=== PATIENT | female | born 2000 | race Caucasian/White ===

== ENCOUNTER 2023-02-21 15:35 | Outpatient (CLI) | payer BC, SELFPAY ==
[2023-02-21 17:54] LABS: Chlamydia DNA Amplified* NOT DETECTED (No Detected); GC DNA Amplified* NOT DETECTED (No Detected)
== END 2023-02-21 15:36 | disposition home or self-care (01) ==
PROVIDERS: PCP Family Medicine; Visit Provider Registered Nurse
DX: N89.8 Other specified noninflammatory disorders of vagina (principal); Z11.3 Encounter for screening for infections with a predominantly sexual mode of transmission
CPT/HCPCS: 86592; 86703; 86803; 87086; 87340; 87491; 87591

== ENCOUNTER 2023-04-18 13:08 | Outpatient (CLI) | payer BC, SELFPAY ==
[2023-04-18 17:24] LABS: Chlamydia DNA Amplified* NOT DETECTED (No Detected); GC DNA Amplified* NOT DETECTED (No Detected)
[2023-04-22 10:40] LABS: HSV 1 Subtype by PCR Not Detected; HSV 2 Subtype by PCR Not Detected; Herpes Simplex Subtype Source Not Provided
== END 2023-04-18 13:09 | disposition home or self-care (01) ==
PROVIDERS: PCP Family Medicine; Visit Provider Registered Nurse
DX: N94.9 Unspecified condition associated with female genital organs and menstrual cycle (principal)
CPT/HCPCS: 87086; 87491; 87529; 87591

== ENCOUNTER 2023-07-25 07:05 | Outpatient (CLI) | payer BC, SELFPAY ==
--- OUTSIDE RECORDS SUMMARY | 2023-07-25 07:07 | XMS_ITS | Clinical Summary ---
Author Name Unknown Organization [facility] Address [place], [place] [address] Care Team Providers Care Synchronous Motor Assembler Name Role Phone Pcp, No Primary Care Provider Unavailabl e Allergies No known active allergies Medications Medication Sig Dispensed Refills Start Date End Date Status bupropion HCl (WELLBUTRIN ORAL) Take 150 mg by mouth. 0 Active escitalopram oxalate (LEXAPRO) 10 mg tablet Take 10 mg by mouth once daily. 0 Active clonazePAM (KLONOPIN) 0.5 mg tablet Take 0.5 mg by mouth three times daily. 0 Active ondansetron (ZOFRAN ODT) 4 mg disintegrating tabletIndications:COVID -19 Place 1 Tablet (4 mg) on the tongue every 8 hours if needed for Nausea/Vomiting . 12 Tablet 0 07/27/2022 Active rx ondansetron (ZOFRAN ODT) 4 mg orally disintegrating tablet (ED DC MED)Indications:Nausea and vomiting, unspecified vomiting type Place 1 Tablet (4 mg) on the tongue every 8 hours if needed (nausea). 4 Tablet 0 07/27/2022 Active Active Problems Problem Noted Date Diagnosed Date Kidney stones 05/02/2017 Encounter for initial prescr iption of injectable contraceptive 02/09/2017 Menorrhagia with irregular cycle 08/02/2016 Cyst of right ovary 04/28/2016 Social anxiety disorder 01/24/2016 Allergic rhinitis 03/13/2013 Resolved Problems Problem Noted Date Diagnosed Date Resolved Date Constipation 09/23/2013 10/05/2014 Other atopic dermatitis and related conditions 02/12/2007 01/24/2016 Immunizations Name Administration Dates Next Due AMB Influenza, IIV3 (Age >=3 years)(Flu Clinic Only) 05/02/2008 DTaP 01/16/2008,05/18/2004 [id number] (Pediarix) 06/30/2003,05/01/2003,0 02/24/2003 HIB PRP-OMP (PedvaxHIB) 05/18/2004,05/01/2003, HPV 9 (Gardasil 9) 01/24/2016,08/24/2015, 015 Hepatitis A (Peds) 08/24/2015,02/02/2015 Inactivated Polio Vaccine 01/16/2008 Influenza, IIV3 (Age >=3 years) 05/06/2013,03/02,04/30/2007 Influenza, IIV4 02/09/2017,03/10/2016,04/21/2014 MMR 01/16/2008,01/20/2004 Meningococcal Vaccine (Menveo) 02/02/2015 Pneumococcal conj 7-Valent (Prevnar 7) 4,05/01/2003,02/24/2003 Tdap 02/02/2015 Varicella Vaccine 01/16/2008,01/20/2004 Family History Medical History Relation Name Comments Good Health Brother 1 Good Health Brother 2 Other Maternal Aunt Cerebtal Hemor rhage Cancer Maternal Grandfather mouth Multiple sclerosis Maternal Grandmother Asthma Mother Good Health Sister Relation Name Status Comments Brother 1 Alive Brother 2 Alive Father Alive Maternal Aunt Maternal Grandfather Alive Maternal Grandmother Mother Alive Paternal Grandfather Alive Paternal Grandmother Alive Sister Alive Social History Tobacco Use Types Packs/Day Years Used Date Smoking Tobacco: Passive Smo ke Exposure - Never Smoker Smokeless Tobacco: Never Tobacco Cessation:Counseling Given: Yes Comments:mom smokes outside Alcohol Use Standard Drinks/Week Comments Yes 0 (1 standard drink = 0.6 oz pur e alcohol) occasionally Sex and Gender Information Value Date Recorded Sex Assigned at Not on file Gender Identity Not on file Sexual Orientation Not on file Obstetrics History Para Term AB IAB SAB Ectopic Multiple Livin g Live Births 0 0 0 0 0 0 0 0 0 0 Last Filed Vital Signs Vital Sign Reading Time Taken Comments Blood Pressure 113/79 07/27/2022 11:10 PM MILITARY EXCHANGE WIRELESS MANAGER Pulse 89 07/27/2022 11:10 PM MILITARY EXCHANGE WIRELESS MANAGER Temperature 37.9 ??C (100.3 ??F) 07/27/2022 11:10 PM MILITARY EXCHANGE WIRELESS MANAGER Respiratory Rate 20 07/27/2022 11:10 PM MILITARY EXCHANGE WIRELESS MANAGER Oxygen Saturation 100% 07/27/2022 11:10 PM MILITARY EXCHANGE WIRELESS MANAGER Inhaled Oxygen Concentration - - Weight 53 kg (116 lb 13.5 oz) 07/27/2022 9:53 PM MILITARY EXCHANGE WIRELESS MANAGER Height 162.6 cm (5' 4) 07/27/2022 9:53 PM MILITARY EXCHANGE WIRELESS MANAGER Body Mass Index 20.06 07/27/2022 9:53 PM MILITARY EXCHANGE WIRELESS MANAGER Plan of Treatment Health Maintenance Due Date Last Done Comments Well Child Check for age 3-20 01/23/2017 01/24/2016, 02/02/2015, 01/21/2013, Additional history exists HIV for age 15-65 2017 Depression screening for age 12+ 02/09/2018 02/09/2017, 04/28/2016, 01/24/2016, Additional history exists BMI (ht and wt on same day) for age 18+ 2020 Hepatitis C screening for age 18-79 2020 COVID-19 vaccine series ( season) 2023 10/28/2020, 10/04/2020 Influenza for age 9-49 02/02/2023 7, 03/10/2016, 04/21/2014, Additional history exists Tetanus booster 02/02/2025 02/02/2015 Pneumococcal series for age 6-64 Aged Out 06/30/2003, 05/01/2003, 02/24/2003 No longer eligible based on patient's age to complete this topic Meningococcal series for age 11-21 Aged Out 02/02/2015 No longer eligible based on patient's age to complete this topic Tdap Completed 02/02/2015 HPV series for age 9-26 Completed 01/24/20 16, 08/24/2015, 02/02/2015 Advance Directives Latest Code Status on File Code Status Date Activated Date Inactivated Comments Full Code 05/09/2013 9:17 AM 05/09/2013 1:48 PM Code Status History Code Status Date Activated Date Inactivated Comments Full Code 05/09/2013 7:15 AM 05/09/2013 9:17 AM Care Teams Synchronous Motor Assembler Relationship Specialty Start Date End Date Pcp, No . PCP - General 06/03/20
== END 2023-07-25 07:06 | disposition home or self-care (01) ==
LOC: NFLDREF 07:05
PROVIDERS: PCP Family Medicine; Visit Provider Family Medicine
DX: R30.0 Dysuria (principal)
CPT/HCPCS: 87086

== ENCOUNTER 2023-08-20 13:25 | Outpatient (CLI) | payer BC, SELFPAY ==
[2023-08-20 14:27] LABS: Clue Cells <20% Clue Cells Seen (None Seen); Trichomonas No Trichomonas Seen (None Seen); Yeast No Yeast Seen (None Seen)
== END 2023-08-20 13:26 | disposition home or self-care (01) ==
LOC: FBOREF 13:26
PROVIDERS: PCP Family Medicine; Visit Provider Family Medicine
DX: N89.8 Other specified noninflammatory disorders of vagina (principal)
CPT/HCPCS: 81001; 87086; 87210

== ENCOUNTER 2023-09-10 14:43 | Emergency (ER) | payer OTHER, SELFPAY ==
--- OUTSIDE RECORDS SUMMARY | 2023-09-10 14:46 | XMS_ITS | Clinical Summary ---
Author Name Unknown Organization [facility] Address [place], [place] [address] Care Team Providers Care Director Product Development Name Role Phone Pcp, No Primary Care Provider Unavailabl e Allergies No known active allergies Medications Medication Sig Dispensed Refills Start Date End Date Status bupropion HCl (WELLBUTRIN ORAL) Take 150 mg by mouth. Active escitalopram oxalate (LEXAPRO) 10 mg tablet Take 10 mg by mouth once daily. Active clonazePAM (KLONOPIN) 0.5 mg tablet Take 0.5 mg by mouth three times daily. Active ondansetron (ZOFRAN ODT) 4 mg disintegrating tabletIndications:COVID -19 Place 1 Tablet (4 mg) on the tongue every 8 hours if needed for Nausea/Vomiting . 12 Tablet 07/27/2022 Active rx ondansetron (ZOFRAN ODT) 4 mg orally disintegrating tablet (ED DC MED)Indications:Nausea and vomiting, unspecified vomiting type Place 1 Tablet (4 mg) on the tongue every 8 hours if needed (nausea). 4 Tablet 07/27/2022 Active Active Problems Problem Noted Date [...] >=3 years)(Flu Clinic Only) 05/02/2008 DTaP 01/16/2008,05/18/2004 [id number] (Pediarix) 06/30/2003,05/01/2003,0 02/24/2003 HIB PRP-OMP (PedvaxHIB) 05/18/2004,05/01/2003, [...] Comments Blood Pressure 113/79 07/27/2022 11:10 PM FLIGHT INSTRUCTOR Pulse 89 07/27/2022 11:10 PM FLIGHT INSTRUCTOR Temperature 37.9 ??C (100.3 ??F) 07/27/2022 11:10 PM FLIGHT INSTRUCTOR Respiratory Rate 20 07/27/2022 11:10 PM FLIGHT INSTRUCTOR Oxygen Saturation 100% 07/27/2022 11:10 PM FLIGHT INSTRUCTOR Inhaled Oxygen Concentration - - Weight 53 kg (116 lb 13.5 oz) 07/27/2022 9:53 PM FLIGHT INSTRUCTOR Height 162.6 cm (5' 4) 07/27/2022 9:53 PM FLIGHT INSTRUCTOR Body Mass Index 20.06 07/27/2022 9:53 PM FLIGHT INSTRUCTOR Plan of Treatment Health Maintenance Due Date Last Done Comments Well Child Check for age 3-20 01/23/2017 01/24/2016, 02/02/2015, 01/21/2013, Additional history exists HIV for age 15-65 2017 Depression screening for age 12+ 02/09/2018 02/09/2017, 04/28/2016, 01/24/2016, Additional history exists BMI (ht and wt on same day) for age 18+ 2020 Hepatitis C screening for age 18-79 2020 COVID-19 vaccine series (2022- season) 2023 10/28/2020, 10/04/2020 Influenza for age 9-49 02/03/2024 7, 03/10/2016, 04/21/2014, Additional history exists Tetanus [...] Completed 01/24/20 16, 08/24/2015, 02/02/2015 Advance Directives * Full Code (Latest Code Status on File) Date Activated Date Inactivated Comments 05/09/2013 9:17 AM 05/09/2013 1:48 PM * Full Code Date Activated Date Inactivated Comments 05/09/2013 7:15 AM 05/09/2013 9:17 AM Care Teams Director Product Development Relationship Specialty Start Date End Date Pcp, No . PCP - General 06/03/20
[2023-09-10 14:59] VITALS: BP 96/65; PULSE 73; RESP 14; TEMP 36.8; O2SAT 97; BMI 24.8
--- NOTE | 2023-09-10 15:23 | CT_ITS ---
Patient: RANDI ZENDEJAS Facility:?[facility] Patient ID:?[id number] Site Patient ID:?[id number]. Site :?[id number] Study:?CT-Abdomen/Pelvis W/IV ONLY-09/10/2023 4:17:14 PM Ordering Physician:TREVOR Final Report: INDICATION: RIGHT FLANK PAIN, CONCERN FOR Keila. TECHNIQUE: CT abdomen and pelvis acquired with 69 cc Isovue 370 IV contrast. COMPARISON: None. FINDINGS: Lower chest: Unremarkable. Liver: Unremarkable. Normal in size and attenuation. No suspicious masses. Gallbladder and bile ducts: Unremarkable. No stones or inflammation. No biliary dilatation. Pancreas: Unremarkable. No mass or inflammation. Spleen: Unremarkable. Normal in size. No masses. Adrenal glands: Unremarkable. No nodules. Kidneys: There is mild enhancement of the bilateral ureters, worse on the right than the left. No significant hydronephrosis or hydroureter. No significant parenchymal changes in the bilateral kidneys. No renal or ureteral stones. GI tract: Unremarkable. Normal in caliber. No sign of mass or inflammation. Normal appendix. Vasculature: Abdominal aorta is normal in caliber. Mesenteric arteries are patent. Lymph nodes: No lymphadenopathy. Peritoneum/Abdominal Wall: Unremarkable. No sign of mass or infiltration. No free air or significant free fluid. Pelvis: Circumferential bladder wall thickening. Right adnexal cyst is noted measuring proximally 2.3 centimeters, likely physiologic. Uterus is unremarkable. Bones: Unremarkable for age. IMPRESSION: 1. Ureteral enhancement bilaterally, worse on the right than the left concerning for ascending urinary infection. No renal parenchymal changes to suggest pyelonephritis. 2. Circumferential bladder wall thickening likely related to urinary infection. Correlate with UA. Please note that all CT scans at this facility use dose modulation, iterative reconstruction, and/or weight-based dosing when appropriate to reduce radiation dose to as low as reasonably achievable. Dictated by Nargis Whiting MD @ 09/10/2023 4:59:18 PM Signed by:?Nargis Whiting MD @09/10/2023 4:59:18 PM (Electronic Signature)
[2023-09-10 15:28] LABS: Appearance Urine Slightly Cloudy (Clear); Bilirubin Urine Negative (Negative); Blood Urine 2+ (Negative); Color Urine Yellow (Yellow); Glucose Urine Negative (Negative); Ketones Urine Negative (Negative); Leukocyte Esterase Urine 3+ (Negative); Nitrite Urine Negative (Negative); Protein Urine Negative (Negative); Urobilinogen Urine 0.2 (0.2-1.0); pH Urine 7.5 (5.0-8.5)
--- OUTSIDE RECORDS SUMMARY | 2023-09-10 15:38 | XMS_ITS | Clinical Summary ---
Author Name Unknown Organization [employer] [facility] Address [place], [place] [address] Care Team Providers Care Examiner Of Currency Name Role Phone Pcp, No Primary Care [...] >=3 years)(Flu Clinic Only) 05/02/2008 DTaP 01/16/2008,05/18/2004 [id number] (Pediarix) 06/30/2003,05/01/2003,0 02/24/2003 HIB PRP-OMP (PedvaxHIB) 05/18/2004,05/01/2003, [...] Comments Blood Pressure 113/79 07/27/2022 11:10 PM ASSOCIATE BUYER Pulse 89 07/27/2022 11:10 PM ASSOCIATE BUYER Temperature 37.9 ??C (100.3 ??F) 07/27/2022 11:10 PM ASSOCIATE BUYER Respiratory Rate 20 07/27/2022 11:10 PM ASSOCIATE BUYER Oxygen Saturation 100% 07/27/2022 11:10 PM ASSOCIATE BUYER Inhaled Oxygen Concentration - - Weight 53 kg (116 lb 13.5 oz) 07/27/2022 9:53 PM ASSOCIATE BUYER Height 162.6 cm (5' 4) 07/27/2022 9:53 PM ASSOCIATE BUYER Body Mass Index 20.06 07/27/2022 9:53 PM ASSOCIATE BUYER Plan of Treatment Health Maintenance Due Date [...] 7:15 AM 05/09/2013 9:17 AM Care Teams Examiner Of Currency Relationship Specialty Start Date End Date Pcp, No . PCP - General 06/03/20
--- OUTSIDE RECORDS SUMMARY | 2023-09-10 15:38 | XMS_ITS | Data Portability ---
Author Name Unknown Address [address] [place] [id number] Phone [phone] Organization [facility], [facility] Address [address] [place] [phone] Assessment No assessment recorded. Plan of Treatment Reminders Order Date Submit Date Provider Last Modified By Organization Details Last Modified Time Details Appointments None recorded. Lab rapid SARS CoV 2 Ag, QL IA, respiratory specimen 2020 021 [email or web address] [facility], [address] [place] [address], [id number], 15:58:26 Referral None recorded. Procedures None recorded. Surgeries None recorded. Imaging None recorded. Medication Orders None recorded. Patient TargetsNo targets recorded. Patient Instructions Encounter Date Encounter Id Patient Instructions Last Modified By Organization Details Last Modified Time 02/17/2021 [id number] Keep a safe distance. ... ?? Wear a mask. ... ?? Encourage proper hygiene. ... ?? The best way to protect yourself and others is to stay home for 14 days if you think you? ve been exposed to someone who has COVID-19. ?? Watch for fever (100.4??F or higher), cough, shortness of breath, or other symptoms of COVID-19. ?? Consider getting tested for COVID-19. Even if you test negative for COVID-19 or feel healthy, you should still stay home (quarantine) for 14 days after your last contact with a person who has COVID-19. This is because symptoms may appear 2 to 14 days after exposure to the virus, and some infected people never have symptoms but are still contagious. ?? Do not travel until 14 days after your last possible exposure. ?? Monitor yourself and household members for symptoms of COVID-19. ?? Get information about COVID-19 testing if you feel sick. Look for emergency warning signs* for COVID-19. If you have any of these signs, seek emergency medical care immediately ?? Trouble breathing ?? Persistent pain or pressure in the chest ?? New confusion ?? Inability to wake or stay awake [email or web address] Not available 02/17/2021 15:58:36 spend 50% of the time counseling [email or web address] Not available 02/17/2021 15:58:58 Reason for Referral None Reported. Results Created Date Observation Date Name Description Value Unit Range Abnormal Flag LastModifiedBy Organization Detail LastModifiedTime 02/18/20 21 02/17/2021 rapid SARS CoV 2 Ag, QL IA, respi rator y speci men Results negati ve Not Available [facility] [address] [place] [address], [phone], 02/17/2021 15:44:36 Result Notes None recorded. Medical Equipment None Reported. Medications Name Sig Start Date Stop Date Status Note LastModified by Organization Details LastModified Time trazodone 50 mg tablet TAKE ONE TABLET BY MOUTH AT BEDTIME active Not Available Not Available No t Available zolpidem 5 mg tablet TAKE ONE TABLET BY MOUTH AT BEDTIME NEEDED FOR SLEEP active Not Available Not Available No t Available escitalopram 10 mg tablet TAKE ONE TABLET BY MOUTH DAILY FOR ONE WEEK, THEN ONE-HALF TABLET DAILY FOR ONE WEEK THEN DISCONTIN UE. THIS IS A CHANGE IN DOSING TOWARD A S active Not Available Not Available No t Available escitalopram 20 mg tablet TAKE ONE-HALF TABLET BY MOUTH EVERY DAY FOR 10 DAYS, THEN TAKE ONE TABLET BY MOUTH EVERY DAY active Not Available Not Available No t Available aripiprazole 5 mg tablet TAKE ONE TABLET BY MOUTH EVERY DAY active Not Available Not Available No t Available bupropion HCl XL 150 mg 24 hr tablet, extended release TAKE ONE TABLET BY MOUTH EVERY DAY active Not Available Not Available No t Available quetiapine ER 200 mg tablet,extende d release 24 hr TAKE ONE TABLET BY MOUTH AT BEDTIME FOR MOOD - INSTEAD OF ABILIFY active Not Available Not Available No t Available quetiapine ER 50 mg tablet,extende d release 24 hr TAKE 1 TABLET BY MOUTH AT BEDTIME ON DAY 1 THEN 2 TABLETS BY MOUTH AT BEDTIME ON DAY 2 - THEN START 200MG ER TABLETS ON DAY 3 active Not Available Not Available No t Available Vitals None Recorded Social History None recorded. Functional Status None recorded. Mental Status None recorded. Family History Nothing Reported. Medical History No medical history recorded. Gynecological HistoryNo gynecological history recorded. Obstetrics History GPAL:G 0 P 0 0 0 0 Past Encounters Encounter ID Performer Location Encounter Start Date Encounter Closed Date Diagnosis/Indication Diagnosis SNOMED-CT Code [id number] JERALD Chaparro [facility] [address] [place] [address] 02/17/2021 15:39:48 02/17/2021 15:40:13 Exposure to SARS-CoV-2 [id number] Counseling [id number] Health Concerns Section Related Observation LastModified by Organization Detai ls LastModified Time None Recorded Concern Status LastModified by Organization Details LastModified Time None Recorded Advance Directives Directive None Recorded Payers Encounter Date Sequence Insurance Name Policy Number Policy Hall Covered Member ID Hall Member ID Guarantor Name 02/17/2021 1 [facility] (MEDICAID REPLACEMENT - HMO) [id number] Colette Otero [id number] Colette Otero Notes Date Note Type Note Provider Name and Address Organization Details Recorded Time 02/17/2021 text/html HPI Notes: Patient is here for COVID19 testing after exposure. Patient denies cough, sore throat, no fevers / chills, no SOB or headaches. Otherwise doing well. JERALD Chaparro [address] [place], [phone], [facility] 02/17/2021 15:59:01 OBGyn Episode No OBEpisode recorded.
[2023-09-10] MEDS: KETOROLAC 15 MG/ML inj IVP (15:40)
[2023-09-10] MEDS: LACTATED RINGERS 1000 ML 1,000 ML IV (15:41)
[2023-09-10 15:49] LABS: Basophils Absolute Auto 0.05 K/uL (0.00-0.30); Basophils Percent Auto 0.6 % (0.0-3.0); Eosinophils Absolute Auto 0.25 K/uL (0.00-0.50); Eosinophils Percent Auto 3.2 % (0.0-7.0); Hematocrit 40.5 % (33.0-51.0); Hemoglobin* 13.6 gm/dL (12.0-16.0); Immature Granulocytes Abs Auto 0.01 K/uL (0.00-0.30); Immature Granulocytes Pct Auto 0.1 %; Lymphocytes Absolute Auto 2.42 K/uL (0.90-2.90); Lymphocytes Percent Auto 30.8 % (20-44); Mean Corpuscular HGB Conc 34 gm/dL (32-36); Mean Corpuscular Hemoglobin 30 pg (26-34); Mean Corpuscular Volume 90 fL (80-100); Neutrophils Absolute Auto 4.42 K/uL (1.7-7.0); Neutrophils Percent Auto 56.3 % (42.0-72.0); Platelet Count* 273 K/uL (140-440); RDW Coefficient of Variation % 11.6 % (11.5-15.5); White Blood Count* 7.86 K/uL (4.50-11.00)
[2023-09-10 15:50] LABS: Bacteria Urine Many; RBC Urine 0-2 (0-2); Squamous Epithelial Cell Urine Few (None-Few); WBC Urine >100 (0-5)
[2023-09-10 15:51] LABS: Other Sediment Urine Moderate
--- NOTE | 2023-09-10 16:00 | ED.GENADULT ---
HPI - General Adult General Date Seen: 09/10/23 Chief complaint: Flank Pain Stated complaint: R side back pain, discomfort when urinating Time Seen by Provider: 09/10/23 14:47 Source: patient Mode of arrival: ambulatory Limitations: no limitations History of Present Illness HPI narrative: Patient is a 22-year-old female presenting to the emergency department for right flank pain and increased pressure with urination. States that past 5 days she has me noticing this increased pressure with urination. States it isn't painful but is uncomfortable. Has also noticed increasing frequency. Over the past states she is now developing right flank pain. States she has had UTIs before but has not had this flank pain in the past. Denies fevers, chills, abdominal pain, headache, vision changes, nausea/vomiting. Did notice some blood on the toilet paper today when wiping. No history of kidney stones. No previous abdominal surgeries. Has not taken anything yet for pain today. Pain does not radiate anywhere. She describes this as a stabbing pain in her back Related Data Previous Rx's Medication Instructions Recorded olanzapine 5 mg tablet (Zyprexa) 5 mg PO QHS #90 tabs 10/04/22 norethindrone (contraceptive) 0.35 0.35 mg PO QDAY #84 tabs 06/10/23 mg tablet (Nya) clonazepam 0.5 mg tablet 0.5 mg PO BID #60 tabs 07/11/23 oxybutynin chloride 5 mg tablet 5 mg PO QHS PRN bladder spasms #30 07/11/23 tabs loperamide 2 mg capsule 2 mg PO BID PRN loose stool #60 08/03/23 caps clotrimazole-betamethasone 1 1 applic topical BID 2 weeks #15 08/20/23 %-0.05 % topical cream grams isotretinoin 20 mg capsule 20 mg PO BID #60 caps 08/20/23 (Accutane) propranolol 60 mg capsule,24 60 mg PO QDAY #30 caps 08/31/23 hr,extended release (Inderal LA) ciprofloxacin HCl 500 mg tablet 500 mg PO BID #14 tabs 09/10/23 (Cipro) ondansetron 4 mg disintegrating 4 mg PO Q6H #20 tabs 09/10/23 tablet Allergies Allergy/AdvReac Type Severity Reaction Status Date / Time No Known Drug Allergies Allergy Verified 09/10/23 14:58 Review of Systems Status of ROS: Reports: 10 or more systems reviewed and unremarkable except as noted in History and below PFSH PFS Medical History Nodulocystic acne ?L70.0 - Acne vulgaris (ICD-10) Migraine with aura ?G43.109 - Migraine with aura, not intractable, without status migrainosus (ICD-10) Irritable bowel syndrome ?K58.9 - Irritable bowel syndrome without diarrhea (ICD-10) Allergic rhinitis ?J30.9 - Allergic rhinitis, unspecified (ICD-10) Internal hemorrhoids ?K64.8 - Other hemorrhoids (ICD-10) History of renal calculi (06/10/17) ?Z87.442 - Personal history of urinary calculi (ICD-10) Anorexia nervosa with bulimia ?F50.02 - Anorexia nervosa, binge eating/purging type (ICD-10) Anal fissure ?K60.2 - Anal fissure, unspecified (ICD-10) Surgical History History of tonsillectomy and adenoidectomy (05/09/13) ?Z90.89 - Acquired absence of other organs (ICD-10) History of lithotripsy (06/10/17) ?Z98.890 - Other specified postprocedural states (ICD-10) Family History Mother Alcohol abuse Anxiety Father Anxiety Brother Anxiety Social History Narrative: Single, no kids, daily marijuana smoker, cigarette smoker, Smoking Status: Never smoker How often do you have a drink containing alcohol: never AUDIT-C Alcohol total score: 0 Non-prescribed substance use: denies use Little interest or pleasure in doing things: several days Feeling down, depressed, or hopeless: several days Exam Narrative: Exam Narrative: Const: Well-nourished, Well-developed, in mild distress Eyes: PERRL, no conjunctival injection, and symmetrical lids HENT: Atraumatic external nose and ears. Moist mucous membranes. Neck: Symmetric, trachea midline, No thyromegaly. CVS: RRR, No murmurs or gallops. Peripheral pulses 2+ and equal in all extremities RESP: Unlabored respiratory effort. Clear to auscultation bilaterally. GI: Nontender/Nondistended, No rebound or guarding. Right CVA tenderness MSK:Extremities w/o deformity, Normal Active ROM Skin: Warm, Dry. Dry rash to bilateral dorsal hands Neuro: Normal Muscle tone, No focal neurological deficits. Psych: Awake, Alert, & Oriented x3. Appropriate mood and affect. Const: Vital Signs, click to edit/add: Vital Signs - 24 hr 09/10/23 14:59 Temperature 98.3 F Pulse Rate [Pulse Oximeter] 73 Respiratory Rate 14 Blood Pressure [Ri ght Upper Arm] 96/65 Pulse Oximetry 97 Oxygen Delivery Me thod Room Air Course Vital Signs Vital signs: Initial Vital Signs Temperature 98.3 F 09/10/23 14:59 Temperature Source Temporal Artery Scan 09/10/23 14:59 Pulse Rate 73 09/10/23 14:59 Pulse Rhythm Regular 09/10/23 14:59 Respiratory Rate 14 09/10/23 14:59 Blood Pressure 96/65 09/10/23 14:59 Blood Pressure Mean 75 09/10/23 14:59 Blood Pressure Position Sitting 09/10/23 14:59 Pulse Oximetry 97 09/10/23 14:59 Oxygen Delivery Method Room Air 09/10/23 14:59 Vital Signs Temperature 98.3 F 09/10/23 14:59 Pulse Rate 73 09/10/23 14:59 Respiratory Rate 14 09/10/23 14:59 Blood Pressure 96/65 09/10/23 14:59 Pulse Oximetry 97 09/10/23 14:59 Oxygen Delivery Method Room Air 09/10/23 14:59 Temperature 98.3 F 09/10/23 14:59 Pulse Rate 73 09/10/23 14:59 Respiratory Rate 14 09/10/23 14:59 Blood Pressure 96/65 09/10/23 14:59 Pulse Oximetry 97 09/10/23 14:59 Oxygen Delivery Method Room Air 09/10/23 14:59 Medications Administered Medications: Discontinued Medications Generic Name Dose Route Start Last Admin Trade Name Freq PRN Reason Stop Dose Admin Lactated Ringer's 1,000 mls @ 1,000 mls/hr 09/10/23 15:23 09/10/23 16:43 Lactated Ringers 1000 Ml IV 09/10/23 16:22 Infused .Q1H ONE Infusion Ketorolac Tromethamine 15 mg 09/10/23 15:23 09/10/23 15:40 Ketorolac 15 Mg/Ml Inj IVP 09/10/23 15:24 15 mg ONCE ONE Administration Medical Decision Making MDM Narrative Medical decision making narrative: Patient is a 22-year-old female presenting for urinary symptoms. Will with her dysuria and polyuria do believe she has a UTI but I am also concerned about pyelonephritis could she is having associated right flank pain that started a few days after the initial urinary symptoms. She is having no fever and the pain is relatively tolerable. Toradol was given for pain. Her vital signs are otherwise stable. Does not appear septic. CBC, CMP, urinalysis, urine test all ordered. She is also given a L of lactated Ringer's as she is feeling dehydrated. Urinalysis shows signs of a UTI. CBC and CMP shows no concerning findings. CT scan of the abdomen pelvis shows no signs of pyelonephritis but that does appear to be concern for ascending urinary tract infection worse on the right than the left. Do this I will treated as pyelonephritis as it is making its way up there. She is otherwise feel the pain is improved and is not having any nausea. I believe she is safe for discharge. Will give her Cipro Of note patient is also complaining about a rash to her bilateral dorsal aspect of her hands. Has been having this rash since was started on Accutane by her primary care provider. Primary care provider has given her a steroid cream to place over it that she states has not been helping. She is wondering if there is anything else I can give her. The rash is scaly in appearance she blood otherwise no concerning findings. I do not believe there is anything further for also due for it in the emergency department in she should follow up with her primary care provider. Lab Data Labs: Lab Results 09/10/23 09/10/23 Range/Units 15:12 15:40 WBC 7.86 (4.50-11.00) K/uL RBC 4.50 (4.00-5.20) m/uL Hgb 13.6 (12.0-16.0) gm/dL Hct 40.5 (33.0-51.0) % MCV 90 (80-100) fL MCH 30 (26-34) pg MCHC 34 (32-36) gm/dL RDW Coeff of Milind 11.6 (11.5-15.5) % Plt Count 273 (140-440) K/uL Neut % (Auto) 56.3 (42.0-72.0) % Lymph % (Auto) 30.8 (20-44) % [place] % (Auto) 9.0 (0.0-11.0) % Eos % (Auto) 3.2 (0.0-7.0) % Baso % (Auto) 0.6 (0.0-3.0) % Neut # (Auto) 4.42 (1.7-7.0) K/uL Lymph # (Auto) 2.42 (0.90-2.90) K/uL [place] # (Auto) 0.70 (0.00-0.90) K/UL Eos # (Auto) 0.25 (0.00-0.50) K/uL Baso # (Auto) 0.05 (0.00-0.30) K/uL Abs Immat Gran (auto) 0.01 (0.00-0.30) K/uL Imm/Tot Granulo (auto) 0.1 % Sodium 138 (135-149) mmol/L Potassium 3.8 (3.6-5.1) mmol/L Chloride 106 (96-114) mmol/L Carbon Dioxide 29 (20-32) mmol/L Anion Gap 3 L (7-15) mEq/L BUN 6 (5-24) mg/dL Creatinine 0.6 (0.5-1.5) mg/dL Estimated Creat Clear 123.72 Estimated GFR 132 ml/min Glucose 77 (60-115) mg/dL Calcium 9.5 (8.4-10.6) mg/dL Total Bilirubin 0.8 (0.1-1.5) mg/dL AST 33 (12-35) U/L ALT 21 (4-35) U/L Alkaline Phosphatase 70 (40-150) U/L Total Protein 7.4 (6.0-8.3) g/dL Albumin 4.4 (3.3-5.0) g/dL Urine Color Yellow (Yellow) Urine Appearance Slightly Cloudy A (Clear) Urine pH 7.5 (5.0-8.5) Ur Specific [place] 1.010 (1.000-1.030) Urine Protein Negative (Negative) Urine Glucose (UA) Negative (Negative) Urine Ketones Negative (Negative) Urine Blood 2+ A (Negative) Urine Nitrite Negative (Negative) Urine Bilirubin Negative (Negative) Urine Urobilinogen 0.2 (0.2-1.0) Ur Leukocyte Esterase 3+ A (Negative) Urine RBC 0-2 (0-2) Urine WBC >100 A (0-5) Ur Squamous Epith Cells Few (None-Few) Other Sediment Moderate A (None) Urine Bacteria Many A (None) Imaging Data CT scan abdomen and pelvis: Attestation: I have reviewed the pertinent imaging results. Radiologist's impression: 1. Ureteral enhancement bilaterally, worse on the right than the left concerning for ascending urinary infection. No renal parenchymal changes to suggest pyelonephritis. 2. Circumferential bladder wall thickening likely related to urinary infection. Correlate with UA. Please note that all CT scans at this facility use dose modulation, iterative reconstruction, and/or weight-based dosing when appropriate to reduce radiation dose to as low as reasonably achievable. Dictated by Nargis Whiting MD @ 09/10/2023 4:59:18 PM Discharge Plan Discharge Clinical Impression: UTI (urinary tract infection) Qualifiers: Urinary tract infection type: site unspecified Hematuria presence: without hematuria Qualified Code(s): N39.0 - Urinary tract infection, site not specified Patient Disposition: Home, Self-Care Condition: Improved Instructions: Urinary Tract Infection in Women (DC) Additional Instructions: Take the antibiotics as prescribed. Use Zofran as needed for nausea if he develops. If you are unable to tolerate the pain or any oral intake return to emergency department for re-evaluation. You do not have pyelonephritis at this time but it is traveling up your ureters so I am giving you a stronger antibiotic. Prescriptions: New ciprofloxacin HCl [Cipro] 500 mg tablet 500 mg PO BID Qty: 14 0RF ondansetron 4 mg tablet,disintegrating 4 mg PO Q6H Qty: 20 0RF No Action olanzapine [Zyprexa] 5 mg tablet 5 mg PO QHS Qty: 90 3RF norethindrone (contraceptive) [Nya] 0.35 mg tablet 0.35 mg PO QDAY Qty: 84 4RF isotretinoin [Accutane] 20 mg capsule 20 mg PO BID Qty: 60 0RF Rx Instructions: must administer with a meal/food clotrimazole-betamethasone 1-0.05 % cream 1 applic topical BID 14 Days Qty: 15 1RF oxybutynin chloride 5 mg tablet 5 mg PO QHS PRN (Reason: bladder spasms) Qty: 30 5RF clonazepam 0.5 mg tablet 0.5 mg PO BID Qty: 60 1RF loperamide 2 mg capsule 2 mg PO BID PRN (Reason: loose stool) Qty: 60 5RF propranolol [Inderal LA] 60 mg capsule,extended release 24 hr 60 mg PO QDAY Qty: 30 1RF Follow Up/Referrals: Stef Cruz MD [Primary Care Provider] - Stand Alone Forms: MyHealth Info Instructions
[2023-09-10 16:03] LABS: Slide Review Reflex No
[2023-09-10 16:05] LABS: Chloride* 106 mmol/L (96-114)
[2023-09-10 16:06] LABS: Albumin* 4.4 g/dL (3.3-5.0); Potassium* 3.8 mmol/L (3.6-5.1); Sodium* 138 mmol/L (135-149)
[2023-09-10 16:08] LABS: Anion Gap 3 mEq/L (7-15); Carbon Dioxide* 29 mmol/L (20-32); Creatinine* 0.6 mg/dL (0.5-1.5); Est. Creatinine Clearance* 123.72; Estimated Glomerular Filt Rate 132 ml/min
[2023-09-10 16:09] LABS: Alanine Aminotransferase* 21 U/L (4-35); Alkaline Phosphatase* 70 U/L (40-150); Aspartate Amino Transferase* 33 U/L (12-35); Bilirubin Total* 0.8 mg/dL (0.1-1.5); Blood Urea Nitrogen* 6 mg/dL (5-24); Calcium* 9.5 mg/dL (8.4-10.6); Glucose* 77 mg/dL (60-115); Total Protein* 7.4 g/dL (6.0-8.3)
[2023-09-10 17:00] VITALS: BP 109/87; PULSE 76; RESP 12; O2SAT 98
[2023-09-10 18:22] LABS: Ur HCG Qualitative* Negative (Negative)
== END 2023-09-10 17:33 | disposition home or self-care (01) ==
PROVIDERS: Family Medicine; Emergency Provider Student in an Organized Health Care Education/Training Program; PCP Family Medicine
DX: N39.0 Urinary tract infection, site not specified (principal)
CPT/HCPCS: 36415; 74177; 80053; 81001; 81025; 85025; 87086; 87186; 96361; 96374; 99283; 99284; 99285; J1885; J7120; Q9967

== ENCOUNTER 2024-01-29 14:59 | Outpatient (CLI) | payer OTHER, SELFPAY ==
--- OUTSIDE RECORDS SUMMARY | 2024-01-29 15:01 | XMS_ITS | Clinical Summary ---
Author Organization [facility] Address [place], [place] [address] Care Team Providers Care Social Media Campaign Manager Name Role Phone Pcp, No Primary Care [...] >=3 years)(Flu Clinic Only) 05/02/2008 DTaP 01/16/2008,05/18/2004 [id number] (Pediarix) 06/30/2003,05/01/2003,0 02/24/2003 HIB PRP-OMP (PedvaxHIB) 05/18/2004,05/01/2003, [...] Comments Blood Pressure 113/79 07/27/2022 11:10 PM CLINICAL PROGRAMMER Pulse 89 07/27/2022 11:10 PM CLINICAL PROGRAMMER Temperature 37.9 ??C (100.3 ??F) 07/27/2022 11:10 PM CLINICAL PROGRAMMER Respiratory Rate 20 07/27/2022 11:10 PM CLINICAL PROGRAMMER Oxygen Saturation 100% 07/27/2022 11:10 PM CLINICAL PROGRAMMER Inhaled Oxygen Concentration - - Weight 53 kg (116 lb 13.5 oz) 07/27/2022 9:53 PM CLINICAL PROGRAMMER Height 162.6 cm (5' 4) 07/27/2022 9:53 PM CLINICAL PROGRAMMER Body Mass Index 20.06 07/27/2022 9:53 PM CLINICAL PROGRAMMER Plan of Treatment Health Maintenance Due Date Last Done Comments HIV for age 15-65 2017 Depression screening for age 12+ 02/09/2018 02/09/2017, 04/28/2016, 01/24/2016, Additional history exists BMI (ht and wt on same day) for age 18+ 2020 Hepatitis C screening for age 18-79 2020 COVID-19 vaccine series (2022- season) 2023 10/28/2020, 10/04/2020 Pap test for age 21-65 12/18/2023 Influenza for age 9-49 02/03/2024 7, 03/10/2016, [...] 7:15 AM 05/09/2013 9:17 AM Care Teams Social Media Campaign Manager Relationship Specialty Start Date End Date Pcp, No . PCP - General 06/03/20
[2024-01-29 17:15] LABS: Clue Cells No Clue Cells Seen (None Seen); Trichomonas No Trichomonas Seen (None Seen); Yeast No Yeast Seen (None Seen)
[2024-01-29 17:55] LABS: Chlamydia DNA Amplified* NOT DETECTED (No Detected); GC DNA Amplified* NOT DETECTED (No Detected)
== END 2024-01-29 15:00 | disposition home or self-care (01) ==
PROVIDERS: PCP Family Medicine; Visit Provider Family Medicine
DX: N89.8 Other specified noninflammatory disorders of vagina (principal); Z20.2 Contact with and (suspected) exposure to infections with a predominantly sexual mode of transmission
CPT/HCPCS: 87210; 87491; 87591

== ENCOUNTER 2024-11-26 16:11 | Outpatient (CLI) | payer MEDICAID, SELFPAY | END 2024-11-26 16:12 | disposition home or self-care (01) | LOC: FBOREF 04-17 16:12 | PROVIDERS: PCP Family Medicine; Visit Provider Family Medicine | DX: N32.81 Overactive bladder (principal) | CPT/HCPCS: 81015 ==